=== PATIENT | female | born 1960 | race Caucasian/White ===

== ENCOUNTER 2022-10-30 09:30 | Day surgery (SDC) | payer OTHER ==
[2022-10-30] MEDS ORDERED: Ringers Lactate 1,000 ML IV ONE (09:49)
[2022-10-30 10:23] LABS: Hematocrit 34.7 % (36.0-45.0); Lymphocytes % 8.8 % (15.3-44.8); MCV 91.4 fL (80-100); RBC Red Blood Cell Count 3.79 M/uL (3.86-4.86)
[2022-10-30 10:40] LABS: Potassium 4.7 mmol/L (3.5-5.1)
[2022-10-30 10:56] LABS: Blood Morphology Comment NOT SEEN (NOT SEEN); Dohle Bodies PRESENT; Platelet Estimate ADEQ
[2022-10-30] MEDS: FENTANYL CITR 100 MCG/2 ML ONE ×3 (11:16→12:16)
--- NOTE | 2022-10-30 12:02 | RAD REPORT ---
EXAM DESCRIPTION: RAD - Chest Pa And Lat (2 Views) - 10/30/2022 11:46 am CLINICAL HISTORY: preop COMPARISON: CHEST SINGLE VIEW dated 01/19/2013 FINDINGS: Lines: None. Lungs: No evidence of edema or pneumonia. Pleural: No significant pleural effusions or pneumothorax. Cardiac: The heart size is within normal limits. Mediastinum: Within normal limits. Bones: No acute fractures. Other: None IMPRESSION: No acute cardiopulmonary disease.
[2022-10-30] MEDS ORDERED: CIPROFLOXACIN 400mg IV 400 MG/200 ML BAG IV ONE (12:19)
[2022-10-30] MEDS ORDERED: FENTANYL CITR 100 MCG/2 ML ONE (12:20)
[2022-10-30] MEDS ORDERED: LIDOCAINE 2% MPF 5 ML VIAL ONE (12:20)
[2022-10-30] MEDS ORDERED: propofoL 200 MG/20 ML VIAL IV ONE (12:20)
[2022-10-30] MEDS ORDERED: MIDAZOLAM HCL 2 MG/2 ML INJ ONE (12:20)
[2022-10-30] MEDS: BUPIVACAINE 0.5% PF 10 ML VIAL ONE ×2 (12:54→12:55)
[2022-10-30] MEDS ORDERED: dexAMETHasone 10 MG/ML VIAL ONE (13:00)
[2022-10-30] MEDS ORDERED: KETOROLAC 30 MG/ML INJ ONE (13:00)
[2022-10-30] MEDS ORDERED: ONDANSETRON 4 MG/2 ML VIAL ONE (13:03)
--- NOTE | 2022-10-30 13:17 | P.BOP ---
Preoperative diagnosis: large area with cellulitis, abscess , infected mass Postoperative diagnosis: same plus complex abscess Primary procedure: Excisional biopsy inflammatory mass with drainage complex abscess [id number] Secondary procedure: Pulse lavage Estimated blood loss: <30cc Specimen: necrotic tissue mass pus Findings: see dicta Anesthesia: General Transferred to: Recovery Room Condition: Good
[2022-10-30 14:11] VITALS: TEMP 98.1
[2022-10-30] MEDS ORDERED: TRAMADOL 37.5mg/APAP 325mg PER TAB ONE (14:35)
[2022-10-30 15:07] VITALS: O2SAT 100
[2022-10-30 15:11] VITALS: BP 101/49
--- NOTE | 2022-10-31 17:40 | EKG ---
Test Date: 2022-10-30 Test Time: 10:14:37 County Administrator: RENEE MEASUREMENT RESULTS: Intervals: Rate: 88 NH: 138 QRSD: 78 QT: 356 QTc: 430 [place]: P: 42 NH: 138 QRS: 55 T: 31 INTERPRETIVE STATEMENTS: Normal sinus rhythm Normal ECG Compared to ECG 01/20/2013 01:23:25 Sinus bradycardia no longer present Sinus arrhythmia no longer present Electronically Signed On 10-31-22 17:39:15 [employer] by Dakota Cole
--- NOTE | 2022-11-04 15:07 | OP ---
Date of Procedure: 10/30/2022 Surgeon: Arron Navarrete MD Preoperative Diagnoses: Large area with cellulitis, abscess, infected subcutaneous mass. Postoperative Diagnoses: Large area with cellulitis, abscess, infected subcutaneous mass plus complex abscess. Procedure: Excisional biopsy of a subcutaneous inflammatory mass with drainage of a complex abscess about 20 x 20 x 3 cm and also a pulse lavage irrigation. Estimated Blood Loss: Less than 30 cc. Specimen: Necrotic tissue inflammatory mass with pus. Findings: Patient has what looked like an inflammatory mass associated with multiple loculations and abscess. The entire area is deep. It is big. It is about 20 x 20 x 3 cm. Anesthesia: General plus local. Indication: This is a case, who comes to us with this inflammatory mass on the back area. The benef its, alternatives, and risks of excision of the mass and also removal of all this complex abscess was fully explained to the patient which include, but not limited to, infection, bleeding, damage to adj acent structures, anesthesia complication, nonhealing wound, [place], and even . She also understand s this may not relieve symptoms. She might need more than one surgical intervention and she will req uire wound care. She signed a consent. The family is involved in health care and they feel comforta ble doing dressing changes, but if they do not feel comfortable they are going to ask us to do a home health and I believe she will be doing that for some time. Description Of Procedure: Patient was brought to the operating room, placed in supine position. Ane sthesia was done without complication. The area of concern was marked by me and the patient in the h olding room previously. The patient was placed in lateral decubitus position. She has some very lar ge area of cellulitis, blisters, necrotic skin and that inflammatory mass which is about 5 x 5 cm led into a complex set of cystic abscess all over the area which is about 20 x 3 cm. All that inflammat ory area have to be removed and then profuse irrigation done to the point that we have to use a pulse jet lavage to obtain at least a clear area. Hemostasis was obtained with Bovie cauterizer. Local a nesthesia was applied and the area was packed with wet-to-dry dressing. Patient tolerated the proced ure well. Patient was sent to recovery in stable condition. DONNY/ANNA Voice ID: [id number] Report ID: [id number]
--- NOTE | 2022-11-04 15:13 | DS ---
Date of Discharge: 10/30/2022 Diagnoses: Large area of cellulitis, abscess, infected inflammatory mass. Procedure: Excisional biopsy of inflammatory subcutaneous mass on the back with drainage of complex abscess, 20 x 20 x [address] Navarrete. Estimated Blood Loss: Less than 30 cc. Anesthesia: General plus local. Plan: Followup in my office in 1 week. Call for appointment on [phone]. The family member who is a nurse will be doing dressing changes but if that is difficult to do because she is not available, t [place] we might have to do home health agency. DONNY/ANNA Voice ID: [id number] Report ID: [id number]
== END 2022-10-30 15:00 | disposition home or self-care (01) ==
LOC: OR 09:30
PROVIDERS: ATTEND Surgery
PROC: 0JB70ZX Excision of Back Subcutaneous Tissue and Fascia, Open Approach, Diagnostic (ICD-10-PCS; 2022-10-30)
PROC: 0H96XZZ Drainage of Back Skin, External Approach (ICD-10-PCS; principal; 2022-10-30 12:30)
DX: L02.212 Cutaneous abscess of back [any part, except buttock and flank] (principal); L03.312 Cellulitis of back [any part except buttock and flank]
CPT/HCPCS: 93005; 87070; 85025; 80048; 36415; 87205; 88304; 87075; 87077; 87186; 71046; 10060; 21920; J2704; J2001; J2250; J3010 ×2; J1100; J7120; J2405; J0744